=== PATIENT | male | born 1995 | race Caucasian/White ===

== ENCOUNTER → 2021-01-14 | Outpatient (REF) | payer OTHER | LOC: M LAB REF 14:04 | PROVIDERS: ATTEND Dermatology | DX: D48.5 Neoplasm of uncertain behavior of skin (principal) ==

== ENCOUNTER → 2021-03-17 | Outpatient (CLI) | payer OTHER ==
--- NOTE | 2021-03-18 15:16 | SLEEPCENT ---
DATE: 03/17/2021 ORDERED BY: Ciera Crooks Nocturnal polysomnography was performed for evaluation of sleep physiology in this patient with excessive somnolence and nonrestorative sleep. There was 7 hours and 12 minutes of data reviewed. There was 379.5 minutes of sleep identified. Sleep latency was normal at 11.5 minutes. REM latency was within normal limits at 107 minutes. Sleep architecture was good with some minor fragmentation but four good REM cycles. Overall sleep efficiency was 89.4%. The electrocardiogram showed a sinus rhythm with an average heart rate of 60 beats per minute. Rate ranged 45-80. EEG showed reasonable normal waveforms for wake and sleep. There were 78 respiratory events identified of 10 seconds in duration or greater for an apnea-hypopnea index of 12.6. The events were primarily obstructive, not exclusive to sleep stage nor body posture, more frequent in the supine posture. Arousals from respiratory events occurred 4.2 times per hour, and oxygen desaturations were seen to 90%. There was some activity in the limb EMG leads. No trains of events. Limb movement arousal index was only 2.1. IMPRESSION: Moderate obstructive sleep apnea syndrome (G47.33). Apnea-hypopnea index 12.3. RECOMMENDATION: The patient should be encouraged to return to the sleep disorder center for pressure therapy. In the interim, alcohol and sedative avoidance should be practiced and caution exercised during the operation of motor vehicles.
== END ==
LOC: M SLEEP 20:00
PROVIDERS: ATTEND Nurse Practitioner Family
DX: G47.33 Obstructive sleep apnea (adult) (pediatric) (principal)

== ENCOUNTER → 2021-03-27 | Outpatient (CLI) | payer OTHER ==
--- NOTE | 2021-03-28 15:40 | SLEEPCENT ---
DATE: 03/27/2021 ORDERED BY: FARNKIE Hernandes Nocturnal polysomnography was performed for the titration of pressure therapy in this patient with obstructive sleep apnea syndrome, apnea-hypopnea index of 12.3. For testing a [employer]Med Airfit F20 full face mask of large size was used, 4 cm of water pressure were applied to the circuit, and the lights were extinguished. Seven hours and 48 minutes of data were reviewed. There were 397.5 minutes of sleep identified. Sleep latency was normal at 20.5 minutes. REM latency was normal at 71 minutes. Sleep architecture was good with 3 REM cycles. Overall sleep efficiency was 85.8%. The electrocardiogram showed a sinus rhythm with an average heart rate of 60 beats per minute. EEG showed normal waveforms for wake and sleep. Respiratory events were fully palliated with CPAP at a pressure of +6 and remaining measures of sleep physiology were normal. IMPRESSION: Obstructive sleep apnea syndrome (G47.33). RECOMMENDATION: Nightly use of pressure therapy 6 cm of water.
== END ==
LOC: M SLEEP 20:00
PROVIDERS: ATTEND Nurse Practitioner Family
DX: G47.33 Obstructive sleep apnea (adult) (pediatric) (principal)